=== PATIENT | female | born 1955 | race Caucasian/White ===

== ENCOUNTER 2019-02-05 06:05 | Inpatient (IN) | payer OTHER ==
[2019-02-04 14:45] LABS: BASOPHIL % 0.5 % (0-2); RED CELL DISTRIBUTION WIDTH 14.1 % (11.5-14.5)
[2019-02-04 14:46] LABS: PLATELET COUNT 410 x10^3mcL (130-400)
[2019-02-04 14:55] LABS: ALBUMIN 4.1 g/dL (3.4-5.0); ALKALINE PHOSPHATASE 137 U/L (46-116); ALT/SGPT 46 U/L (14-59); AST/SGOT 29 U/L (15-37); BILIRUBIN TOTAL 0.4 mg/dL (0.20-1.00); CALCIUM 9.6 mg/dL (8.5-10.1); CHLORIDE SERUM 105 mmol/L (98-107); CREATININE SERUM 0.8 mg/dL (0.6-1.0); GFR1 > 60 mL/min; GLUCOSE SERUM 105 mg/dL (74-106); POTASSIUM SERUM 4.8 mmol/L (3.5-5.1); SODIUM SERUM 141 mmol/L (136-145); TOTAL PROTEIN, SERUM 7.9 g/dL (6.4-8.2)
[~2019-02-05] VITALS: Ht 162.6 cm; Wt 84.8 kg
[2019-02-05 06:19] VITALS: BP 127/75
--- NOTE | 2019-02-05 12:53 | NUR ---
RECEIVED PATIENT FROM OR VIA [facility]. PATIENT IS AWAKE, ALERT AND ORIENTED. PATIENT C/O PAIN AT SURGICAL SITE, 7/10 ACHE LIKE INTERMITTENT PAIN. PATIENT MEDICATED WITH TORADOL AND DILAUDID IN PACU. ICE PACK APPLIED TO LEFT KNEE. PATIENT ABLE TO MOVE LEFT AND RIGHT EXTREMETIES. IV SITE NOTED TO LEFT HAND, FLUSHING WELL, NO S/S ERYTHEMA AT SITE. PATIENT ORIENTED TO ROOM AND INSTRUCTED TO NOTIFY IF PAIN BREAKS THROUGH. WILL CONTINUE PLAN OF CARE.
[2019-02-05 13:14] VITALS: BP 106/54
--- NOTE | 2019-02-05 13:45 | NUR ---
PT AT BEDSIDE TO AMBULATE PATIENT POST OP. PATIENT WALKED WITH FWW, TOLERATED WELL.
--- NOTE | 2019-02-05 14:34 | NUR ---
BELONGINGS DELIVERED TO , HANDED TWO BAGS TO DAUGHTER. PT AWAKE AND ALERT.
[2019-02-05 16:52] VITALS: BP 101/43
--- NOTE | 2019-02-05 18:26 | NUR ---
PATIENT AMBULATED TO RESTROOM WITH FRONT WHEEL WALKER. PATIENT TOLERTED WELL. ABLE TO VOID FREE OF DYSURIA. PATIENT STATES PAIN WORSENS UPON AMBULATION. POLAR ICE PACK APPLIED TO REAPPLIED TO LEFT KNEE. TO BE MEDICATED PRN WITH DILAUDID DISCUSSED. WILL ENDORSE PATIENT CARE TO POULTRY HATCHERY MANAGER NURSE.
--- NOTE | 2019-02-05 20:00 | NUR ---
PT IS AWAKE AND ORIENTED X4. PT DENIES [place]ON OR DIZZINESS AT THIS TIME. PT IS CALM AND COOPEARTIVE WITH NURSING CARE. PT DENIES CP OR PRESSURE. PT HAS PALPABLE PULSES BILAT ALL EXTREMITIES. SCDS IN PLACE, AND PT TO BE ON ASA PO. PT DENIES SOB. RESPIRATIONS EVEN AND UNLABORED ON ROOM AIR. PT HAS CLEAR LUNG SOUNDS. PT ABD SOFT, AND NONTENDER. PT HAS ACTIVE BOWEL SOUNDS. PT DENIES ABD PAIN AND N/V AT THIS TIME. PT VOIDS FREELY ON OWN. PT S/P L TKA. SX INCISION NOTED TO LEFT KNEE WITH DRESSING IN PLACE. SOFT CAST/SPLINT NOTED TO RUE WITH CIRCULATION WNL. PT AMBULATORY WITH USE OF FWW. IV FLUIDS LR RUNNING 80 ML/HR TO LH. IV PATENT WITH NO SIGNS OF INFILTRATION. PT REPORTS PAIN TO LLE, AND WILL RECEIVE PRN PAIN MEDICATIONS. NO SIGNS OF DISTRESS. [facility]
--- NOTE | 2019-02-05 20:13 | NUR ---
PT C/O PAIN TO LEFT KNEE. PRN DILAUDID 1MG GIVEN ORDERED. WILL CONTINUE TO MONITOR.
[2019-02-05 20:52] VITALS: BP 116/57
--- NOTE | 2019-02-05 23:22 | NUR ---
PT REMAINS IN BED AT THIS TIME RESTING WITH EYES CLOSED. NO SIGNS OF DISTRESS. WILL CONTINEU TO MONITOR.
--- NOTE | 2019-02-06 00:10 | NUR ---
PT C/O 7/10 PAIN TO LEFT KNEE. PRN DILAUDID GIVEN ORDERED. WILL CONTINUE TO MONITOR.
--- NOTE | 2019-02-06 04:27 | NUR ---
PT C/O 8/10 PAIN TO LEFT KNEE. PRN DILAUDID GIVEN ORDERED. WILL CONTINUE TO MONITOR.
[2019-02-06 05:59] VITALS: BP 113/51
--- NOTE | 2019-02-06 06:59 | NUR ---
PT IS CALM AND COOPERATIVE WITH NURSING CARE. PT C/O PAIN TO LEFT KNEE AND MANAGED PAIN WITH PRN PAIN MEDICATIONS. PT SLEPT ON AND OFF THROUGHOUT THE EVENING. PT AMBULATORY WITH FWW WITH STEADY GAIT. PT IS CONTINENT OF BLADDER. ALL PT NEEDS MET. NO SIGNS OF DISTRESS. WILL ENDORSE TO DAY NURSE.
--- NOTE | 2019-02-06 07:00 | NUR ---
RECEIVED BED SIDE REPORT AT THIS TIME. PATIENT RESTING COMFORTABLY IN BED. NO APPARENT DISTRESS OR DISCOMFORT NOTED. BREATHING EVEN AND UNLABORED. NO RESPIRATORY DISTRESS NOTED. NO INDICATION OF CHEST PAIN AT THIS TIME. IV TO LEFT HAND INFILTRATED AND REMOVED. ALL QUESTIONS AND CONCERNS ADDRESSED. ALL NEEDS ATTENDED TO. WILL CONTINUE TO MONITOR
--- NOTE | 2019-02-06 08:45 | NUR ---
IV TO LEFT HAND REMOVED. NEW IV TO RIGHT HAND PLACED. PATIENT TOLERATED WELL. ALL NEEDS ATTENDED TO
--- NOTE | 2019-02-06 09:00 | NUR ---
PATIENT C/O LEFT KNEE PAIN AT THIS TIME PATIENT MEDICATED WITH DILAUDID IV. PATIENT TOLERATED WELL. NO ADVERSE EFFECTS NOTED. WILL CONTINUE TO MONITOR
[2019-02-06 09:40] VITALS: BP 132/54
--- NOTE | 2019-02-06 09:54 | NUR ---
PATIENT C/O LEFT KNEE PAIN AT THIS TIME PATIENT MEDICATED WITH NORCO PO. PATIENT TOLERATED WELL. NO ADVERSE EFFECTS NOTED. WILL CONTINUE TO MONITOR
--- NOTE | 2019-02-06 10:00 | NUR ---
MORNING MEDICATIONS ADMINSITERED. PATIENT TOLERATED WELL. NO ADVERSE EFFECTS NOTED. ALL NEEDS ATTENDED TO
--- NOTE | 2019-02-06 13:00 | NUR ---
PATIENT C/O 06/01 LEFT KNEE PAIN. MEDICATED WITH DILAUDID IVP AT THIS TIME. PATIENT TOLERATRED WELL. NO ADVERSE EFFECTS NOTED. ALL NEEDS ATTENDED TO. WILL CONTINUE TO MONITOR
[2019-02-06] MEDS ORDERED: METFORMIN HCL500 MG PO (14:30)
[2019-02-06] MEDS ORDERED: LIPI20 PO (14:31)
[2019-02-06] MEDS ORDERED: GABAPENTIN600 M1 PO (14:32)
[2019-02-06] MEDS ORDERED: CITALOPRAM HYDR10 M1 PO (14:32)
[2019-02-06] MEDS ORDERED: ZESTRIL20 MG PO (14:33)
[2019-02-06] MEDS ORDERED: HYDROCHLOROTHIA25 MG PO (14:33)
[2019-02-06] MEDS ORDERED: ALLERGY10 M2 PO (14:34)
[2019-02-06] MEDS ORDERED: MIRAPEX0.25 MG PO (14:36)
[2019-02-06] MEDS ORDERED: ALENDRONATE SOD70 M2 PO (14:41)
[2019-02-06] MEDS ORDERED: HYDROXYZINE HYD25 MG PO (14:41)
[2019-02-06] MEDS ORDERED: BACLOFEN10 MG PO (14:57)
[2019-02-06 15:16] LABS: BASOPHIL % 0.3 % (0-2); PLATELET COUNT 381 x10^3mcL (130-400); RED CELL DISTRIBUTION WIDTH 13.9 % (11.5-14.5)
[2019-02-06 15:19] LABS: CALCIUM 9.2 mg/dL (8.5-10.1); CARBON DIOXIDE 26.4 mmol/L (21-32); CHLORIDE SERUM 100 mmol/L (98-107); CREATININE SERUM 0.8 mg/dL (0.6-1.0); GFR1 > 60 mL/min; GLUCOSE SERUM 155 mg/dL (74-106); POTASSIUM SERUM 3.7 mmol/L (3.5-5.1); SODIUM SERUM 135 mmol/L (136-145)
--- NOTE | 2019-02-06 15:23 | NUR ---
PATIENT C/O 9/10 LEFT KNEE PAIN AT THIS TIME. PATIENT MEDICATED WITH NORCO 10 AT THIS TIME. REPORTED TO DR MOORE NORCO 5 GIVEN AT 0954 ([id number]). PER MILTON OKEEFE TO GIVE FIRST NORCO 10 DOSE EARLY. PATIENT TOLERATED WELL. NO ADVERSE EFFECTS NOTED. ALL NEEDS ATTENDED TO
--- NOTE | 2019-02-06 16:50 | NUR ---
PATIENT BLOOD SUGAR 119 AT THIS TIME. NO INSULIN COVERAGE REQUIRED. ALL NEEDS ATTENDED TO. WILL CONTINUE TO MONITOR
--- NOTE | 2019-02-06 17:45 | NUR ---
PATIENT SITTING UP IN BED EATING DINNER AT THIS TIME. TOLERATING DIET FAIRLY. NO APPARENT DISTRESS OR DISCOMFORT NOTED. ICE PACK IN PLACE TO LEFT KNEE. ALL NEEDS ATTENDED TO. WILL CONTINUE TO MONITOR
[2019-02-06 17:49] VITALS: BP 134/62
--- NOTE | 2019-02-06 19:07 | NUR ---
PATIENT RESTING COMFORTABLY IN BED AT THIS TIME. NO APPARENT DISTRESS OR DISCOMFORT NOTED. FAMILY AT BEDSIDE. IV PATENT AND INTACT. ALL QUESTIONS AND CONCERNS ADDRESSED. SAFETY PRECAUTIONS MAINTAINED. ALL NEEDS ATTENDED TO. WILL ENDORSE ALL CARE TO PIT OPERATOR NURSE
--- NOTE | 2019-02-06 19:45 | NUR ---
RECIEVED PT SITTING ON SIDE OF BED WITH ICEPACK ON KNEE. NO ACUTE DISTRESS AT THIS TIME, PT A/O X 4, PERIPHERAL PULSES PALPABLE, NO EDEMA PRESENT, LUNG SOUNDS CTA, NO ACUTE REPIRATORY DISTRESS AT THIS TIME, BOWEL SOUNDS ACTIVE, ABD SOFT ROUND, S/P LEFT TOTATL KNEE REPLACEMENT, DRESSING IN PLACE CLEAN, DRY AND INTACT, PT ABLE TO AMBULATE WITH ASSISSTANCE AND A FOUR WHEEL WALKER. TWO DAUGHTERS AT BEDSIDE, BED IN THE LOWEST POSITION, CALL LIGHT IN PLACE WILL CONTINUE TO MONITOR
[2019-02-06 20:48] VITALS: BP 116/48
--- NOTE | 2019-02-06 20:57 | NUR ---
PT REPORTING THROBBING PAIN 10/10 OF THE LEFT KNEE, REQUESTING NORCO 10/325, ADMINISTERED NORCO 10/325 PER PRN ORDER, IMPLEMENTED NONPHARMACOLOGICAL MEASURES IN ADDITION TO MEDICATION, CHANGED ICE IN ICE PACK WILL CONTINUE TO MONITOR
--- NOTE | 2019-02-06 21:40 | NUR ---
PT STATES A RESPONSE TO PAIN INTERVENTIONS OF ADMINISTRATION OF NORCO AND ICEPACK. ALL NEEDS MET AT THIS TIME, WILL CONTINUE TO MONITOR
--- NOTE | 2019-02-06 21:41 | NUR ---
PT C/O INSOMNIA, UGS GIVEN.
--- NOTE | 2019-02-06 23:17 | NUR ---
PT STATING RETURN OF PAIN TO 1010 REQUESTING DILAUDID PRN. ADMINISTERED DILAUDID PRN PER ORDER, BP 143/63, HR 72, RR 16, WILL REASSESS
--- NOTE | 2019-02-06 23:50 | NUR ---
PT STATING RELIEF OF THROBBING LEFT KNEE PAIN FROM DILAUDID PRN ADMINISTRATION TO ACCEPTABLE LEVEL OF 5/10. WILL CONTINUE TO MONITOR
--- NOTE | 2019-02-07 00:10 | NUR ---
PT RESTING COMFORTABLY IN BED SLEEPING, CHANGED THE ICE IN THE ICEPACK, SAFETY PRECAUTIONS IN PLACE, ALL NEEDS MET AT THIS TIME
--- NOTE | 2019-02-07 03:27 | NUR ---
PT COMPLAINING OF 7/10 THROBBING PAIN IN THE LEFT KNEE REQUESTING NORCO 10/325 ADMINISTRATION. ADMINISTERED NORCO PRN PER ORDER, WILL REASSESS.
--- NOTE | 2019-02-07 05:14 | NUR ---
PT HAD 3 EPISODES OF THROBBING PAIN DURING THE NIGHT, I WAS ABLE TO MANAGE HER PAIN WITH PRN ORDERS INDICATED IN THE MAR, AND NON PHATMACOLOGICAL MEANS BY KEEPING HER ICE PACK FILLED WITH ICE, THERE WAS NO ACUTE RESPIRATORY DISTRESS THROUGH THE NIGHT OR EPISODES OF CEST PAIN, ALL NEEDS ATTENDED TO, ALL SAFETY PRECAUTIONS IN PLACE, WILL ENDORESE TO ONCOMING RN.
[2019-02-07 05:47] VITALS: BP 112/49
--- NOTE | 2019-02-07 07:12 | NUR ---
PHYSICAL THERAPY DAILY NOTES CO-SIGN All documentation done by the Panel Beater for 02/07/19 has been reviewed. I agree with the documentation. Reviewed/Co-Signed by: Alcira Dunne PT Documentation Done by:MOLLY SIMMONS UNDERWEAR HEMMER CO-SIGNED FOR THE DATE 02/06/19
--- NOTE | 2019-02-07 07:50 | NUR ---
RECEIVED PATIENT RESTING IN BED COMFORTABLY A/O X4, CLEAR SPEECH, NO NEURO DEFICITS NOTED, DAUGHTER AT BEDSIDE. PATIENT DENIES CHEST PAIN, BREATHING EVEN UNLABBRORED ON RA DENIES SOB, NO DISTRESS NOTED. IV TO LAC H/L INTACT AND PATENT FREE FROM REDNESS AND INFILTRATION. PATIENT IS S/P TOTAL LEFT KNEE ARTHROPLASTY ON 02/05/19 WITH DRESSING TO LEFT KNEE CDI AND ICE PACK IN PLACE TO LEFT KNEE. PATIENT C/O SHARP LEFT KNEE PAIN 07/02, MEDICATED WITH DILAUDID IVP (SEE eMAR). ALL NEEDS ATTENDED TO. INSTRUCTED PATIENT TO CALL FOR ASSISTANCE IF NEEDED, SAFETY PRECAUTIONS MAINTAINED. WILL MONITOR.
--- NOTE | 2019-02-07 08:15 | NUR ---
DR. MOORE IN TO SEE PATIENT AND SPEAK WITH FAMILY AT BEDSIDE.
[2019-02-07 09:09] VITALS: BP 125/51
--- NOTE | 2019-02-07 10:05 | NUR ---
PATIENT C/O LEFT KNEE PAIN 05/01, MEDICATED WITH NORCO PO (SEE eMAR). DAUGHTER AT BEDSIDE. PLACED NEW ICE INTO ICE MACHINE AT BEDSIDE. ALL NEEDS ATTENDED TO. SAFETY PRECAUTIONS MAINTAINED. WILL MONITOR.
[2019-02-07] MEDS ORDERED: COL100 PO (10:22)
[2019-02-07] MEDS ORDERED: AMB5 PO (10:22)
[2019-02-07] MEDS ORDERED: ECO81 PO (10:22)
[2019-02-07] MEDS ORDERED: NOR10T PO (10:23)
--- NOTE | 2019-02-07 12:05 | NUR ---
PATIENT SITTING UP IN CHAIR AT BEDSIDE C/O SHARP LEFT KNEE PAIN 10/10 S/P WORKING WITH PHYSICAL THERAPY. PATIENT MEDICATED WITH DILAUDID IVP (SEE eMAR). DAUGHTER AT BEDSIDE, ALL NEEDS ATTENDED TO. SAFETY PRECAUTIONS IN PLACE. WILL MONITOR.
--- NOTE | 2019-02-07 13:40 | NUR ---
PATIENT SITTING UP AT EDGE OF BED, NO DISTRESS NOTED, DAUGHTER AT BEDSIDE. ALL NEEDS ATTENDED TO. SAFETY PRECAUTIONS IN PLACE. WILL MONITOR.
--- NOTE | 2019-02-07 14:18 | NUR ---
PATIENT C/O SHARP LEFT KNEE PAIN 10/10, MEDICATED WITH NORCO PO (SEE eMAR). ALL NEEDS ATTENDED TO, PATIENT RESTING COMFORTABLY IN BED, ICE PACK TO LEFT KNEE IN PLACE. SAFETY PRECAUTIONS MAINTAINED. WILL MONITOR.
[2019-02-07 14:58] LABS: BASOPHIL % 0.3 % (0-2); PLATELET COUNT 318 x10^3mcL (130-400); RED CELL DISTRIBUTION WIDTH 13.8 % (11.5-14.5)
[2019-02-07 15:07] LABS: CALCIUM 8.6 mg/dL (8.5-10.1); CARBON DIOXIDE 26.6 mmol/L (21-32); CHLORIDE SERUM 100 mmol/L (98-107); CREATININE SERUM 0.8 mg/dL (0.6-1.0); GFR1 > 60 mL/min; GLUCOSE SERUM 124 mg/dL (74-106); POTASSIUM SERUM 3.9 mmol/L (3.5-5.1); SODIUM SERUM 136 mmol/L (136-145)
--- NOTE | 2019-02-07 15:20 | NUR ---
SPOKE WITH DR. MOORE AND INFORMED HIM PATIENT PATIENT C/O 10/10 LEFT KNEE PAIN. PATIENT WAS GIVEN NORCO PO AT 1418 AND DILAUDID IV AT 1205. RECEIVED T.O FROM DR. MOORE TO GIVE TORADOL 15 MG IV ONCE. WILL CARRY OUT ORDER.
--- NOTE | 2019-02-07 15:35 | NUR ---
PATIENT MEDICATED WITH TORADOL 15 MG IVP ONCE FOR SHARP LEFT KNEE PAIN 10/10 PER MD ORDERS. DAUGHTER RADHA AT BEDSIDE. ALL NEEDS ATTENDED TO. SAFETY PRECAUTIONS MAINTAINED. WILL MONITOR.
--- NOTE | 2019-02-07 17:00 | NUR ---
PATIENT C/O SHARP LEFT KNEE PAIN /, MEDICATED WITH DILAUDID IVP (SEE eMAR). PATIENT REPOSITIONED AND MADE COMFORTABLE IN BED. ICE MACHINE AT BEDSIDE FILLED WITH ICE, ICE PACK TO LEFT KNEE IN PLACE. DAUGHTER AT BEDSIDE. ALL NEEDS ATTENDED TO. SAFETY PRECAUTIONS IN PLACE. WILL MONITOR.
[2019-02-07 17:05] VITALS: BP 129/64
--- NOTE | 2019-02-07 18:10 | NUR ---
PATIENT SITTING UP AT EDGE OF BED EATING DINNER, TOLERATING WELL, NO DISTRESS NOTED. DAUGHTER AT BEDSIDE. NO ACUTE CHANGES NOTED DURING SHIFT. ALL NEEDS ATTENDED TO. IV TO LAC H/L INTACT AND PATENT FREE FROM REDNESS AND INFILTRATION. PATIENT IS CALM WITH CARE. ALL NEEDS ATTENDED TO. SAFETY PRECAUTIONS IN PLACE. WILL ENDORSE CARE TO ONCOMING NURSE.
--- NOTE | 2019-02-07 19:40 | NUR ---
RECIEVED PT RESTING COMFORTABLY IN BED WITH FOUR FAMILT MEMBERS AT BEDSIDE, PT A/OX 4 NO ACUTE DISTRESS NOTED AT THIS TIME, PERIPHERAL PULSES PALPABLE THROUGHOUT, NO EDEMA NOTED, LUNG SOUNDS CTA TROUGHOUT, NO SOB NOTED AT THIS TIME, BOWEL SOUNDS ACTIVE TIMES 4, NO POST OP BM AT THIS TIME, VOIDS FREELY WITH NO REPORTS OF BURING, ITCHING, OR PAIN, PT IS S/P LEFT TOTAL KNEE REPLACEMENT, REPORTS WEAKNESS IN LEFT KNEE BUT CAN AMBULATE WITH FWW. IV TO THE LEFT AC 22 G SALINE LOCKED PER PT REQUEST, SITE IS FREE OF REDNESS OR SIGNS OF INFILTRATION, SAFETY PRECAUTIONS IN PLACE WILL CONTINUE TO MONITOR
--- NOTE | 2019-02-07 20:26 | NUR ---
PT COMPLAINS OF 8/10 THROBBING PAIN TO THE LEFT KNEE, IS REQUESTING NORCO. ADMINISTERED NORCO 10/325 PER PRN ORDER, WILL REASSESS
--- NOTE | 2019-02-07 21:18 | NUR ---
PT REPORTS RELIEF OF PAIN TO AN ACCEPTABLE LEVEL, PY REPORTS PAIN AT A 6/10, IS SITTING UP IN BED AND LAUGHING AND CONVERSING WITH FAMILY MEMBER, ALL SAFETY PRECAUTIONS IN PLACE WILL CONTINUE TO MONITOR
[2019-02-07 21:25] VITALS: BP 112/51
--- NOTE | 2019-02-07 22:12 | NUR ---
PT REPORTS 9/10 THROBBING PAIN TO THE LEFT KNEE, REQUESTING "IV PAIN MEDS" REPOSITIONED TO POSITION OF COMFORT AND ADMINISTERED DILAUDID PRN, WILL REASSESS
--- NOTE | 2019-02-07 22:37 | NUR ---
PT REPORTS A RELIEF OF PAIN TO AN ACCEPTABLE LEVEL OF 6/10, PT LYING DOWN IN BED COMFORTABLY, RR 14, ALL SAFETY PRECAUTIONS IN PLACE WILL CONTINUE TO MONITOR
--- NOTE | 2019-02-08 01:15 | NUR ---
PT SLEEPING COMFORTABLY IN BED WITH NO ACUTE DISTRESS NOTED AT THIS TIME, FAMILY MEMBER SLEEPING IN ROOM WELL. PT RESPIRATIONS ARE EVEN AND UNLABOURED, ALL SAFETY PRECAUTIONS MAINTAINED, WILL CONTINUE TO MONITOR
--- NOTE | 2019-02-08 01:53 | NUR ---
PT REPORTS THROBBING PAIN OF THE LEFT KNEE 06/01, ADMINISTERED NORCO 10/325 PRN PER ORDER, WILL REASSESS
--- NOTE | 2019-02-08 02:40 | NUR ---
PT REPORTS RELIEF OF THROBBING LEFT KNEE PAIN TO A TOLERABLE LEVEL, /, SAFETY PRECAUTIONS IN PLACE WILL CONTINUE TO MONITOR
--- NOTE | 2019-02-08 03:26 | NUR ---
PT SLEEPING COMFORTABLY IN BED, FAMILT MEMBER SLEEPING AT BED SIDE. PT RESPIRATIONS EVEN AND UNLABORED, SAFETY PRECAUTIONS IN PLACE WILL CONTINUE TO MONITOR
[2019-02-08 04:17] VITALS: BP 121/72
--- NOTE | 2019-02-08 04:22 | NUR ---
PT CALLED REPORTING 10/10 PAIN IMPLEMENTED NO PHARMICOLOGICAL MEASURES AND REPOSITIONED PT TO POSITION OF COMFORT, ADMINISTERED DILAUDID PRN PER ORDER WILL REASSESS
--- NOTE | 2019-02-08 04:50 | NUR ---
PT REPORTS RELIEF OF PAIN TO TOLERABLE LEVEL.
--- NOTE | 2019-02-08 05:42 | NUR ---
PT HAD EPISODES OF PAIN THROUGH THE NIGHT WICH RESOLVED TO TOLERABLE LEVELS WITH PRN ANALGESIC ADMINISTRATION (SEE PT NOTES), PT HAD NO ACUTE RESPIRATORY DISTRESS THROUGH THE MIGHT, ALL NEEDS MET THROUGH THE NIGHT, WILL ENDRSE CARE TO THE ONCOMING RN
[2019-02-08 06:51] LABS: CALCIUM 8.6 mg/dL (8.5-10.1); CARBON DIOXIDE 28.5 mmol/L (21-32); CHLORIDE SERUM 102 mmol/L (98-107); CREATININE SERUM 0.7 mg/dL (0.6-1.0); GFR1 > 60 mL/min; GLUCOSE SERUM 133 mg/dL (74-106); POTASSIUM SERUM 3.8 mmol/L (3.5-5.1); SODIUM SERUM 136 mmol/L (136-145)
[2019-02-08 07:02] LABS: BASOPHIL % 0.4 % (0-2); PLATELET COUNT 307 x10^3mcL (130-400); RED CELL DISTRIBUTION WIDTH 13.9 % (11.5-14.5)
--- NOTE | 2019-02-08 07:49 | NUR ---
PHYSICAL THERAPY DAILY NOTES CO-SIGN All documentation done by the Associate Director Of Biostatistics for 02/08/19 has been reviewed. I agree with the documentation. Reviewed/Co-Signed by: Alcira Dunne PT Documentation Done by:MOLLY SIMMONS MANAGER OF INTERNATIONAL CO-SIGNED FOR 02/07/19
[2019-02-08 07:50] VITALS: BP 125/58
--- NOTE | 2019-02-08 07:50 | NUR ---
PT REFUSED P/T TRAINING. THERAPIST WAS ABLE TO REVIEW TRANSFER TECHNIQUES AND ROM EXERCISES. PT VERBALIZED UNDERSTANDING.
--- NOTE | 2019-02-08 07:52 | NUR ---
PHYSICAL THERAPY DAILY NOTES CO-SIGN All documentation done by the Paper Wood Cutter for 02/08/19 has been reviewed. I agree with the documentation. Reviewed/Co-Signed by: Alcira Dunne PT Documentation Done by:MOLLY SIMMONS SHIRT MARKER CO-SIGNED FOR 02/07/19
--- NOTE | 2019-02-08 07:53 | NUR ---
DR. MOORE MET WITH PT AND DISCUSSED POC. PT WILL D/C TO HOME TODAY. PT AGREED WITH POC. RECEIVED ORDER TO D/C IVF. ORDER NOTED AND CARRIED OUT.
--- NOTE | 2019-02-08 08:57 | NUR ---
NORCO 10/325MG PO GIVEN FOR THROBBING L KNEE PAIN 05/01. FLUIDS ENCOURAGED. PT ASSIST WITH CONTINUOUS ICE PACK. DENIES NUMBNESS. DUE MEDS GIVEN. B/P 125/58. ALL QUESTIONS ANSWERED. CALL LIGHT WITHIN REACH DAUGHTER AT BEDSIDE.
[2019-02-08 10:45] VITALS: BP 125/58
--- NOTE | 2019-02-08 11:45 | NUR ---
RECEIVED ORDER FROM DR. MOORE. PT MAY DISCHARGED TO HOME TODAY. ORDER NOTED AND CARRIED OUT. PT MADE AWARE.
--- NOTE | 2019-02-08 12:48 | NUR ---
NORCO 10/325MG PO FOR THROBBING HOT PAIN 10/10. RESP EVEN AND UNLABORED. FLUIDS ENCOURAGED. DAUGHTER AT BEDSIDE. CALL LIGHT WITHIN REACH.
--- NOTE | 2019-02-08 13:20 | NUR ---
PT DISCHARGED TO HOME IN NO DISTRESS. DISCHARGE INSTRUCTIONS REVIEWED. ALL FORMS SIGNED. ALL QUESTIONS ANSWERED. IV CATH TO LAC REMOVED INTACT, SITE WNL, COVERED WITH GAUZE AND BANDAID. VS: 97.4F, 105, 18, 125/58, 93/5 ON R/A. PT MEDICATED FOR PAIN PRIOR TO D/C, STATES PAIN LEVEL AT THIS TIME 4/10. ALL PERSONAL BELONGINGS TAKEN HOME WITH PT.
--- NOTE | 2019-02-08 14:00 | NUR ---
PT IS AAOX4. NORMAL S1S2. RESP EVEN, SHALLOW AND UNLABORED. LUNG SOUNDS CTA. ON R/A. ABDOMEN SOFT, NONTENDER, NONDISTENDED. BOWEL SOUNDS ACTIVE. PT HAS L KNEE INCISION COVERED WITH CDI OCCLUSIVE DRESSING. SITE NO SHOWS NO S/S OF INFECTION. IVF RUNNING TO LAC, PATENT. SITE WNL WITH NO S/S OF INFECTION OR INFILTRATION. PT DENIES PAIN AT THIS TIME. CALL LIGHT WITHIN REACH. BED IN LOW POSITION.
--- NOTE | 2019-02-11 08:00 | NUR ---
PHYSICAL THERAPY DAILY NOTES CO-SIGN All documentation done by the Low Vision Therapist for 02/11/19 has been reviewed. I agree with the documentation. Reviewed/Co-Signed by: Alcira Dunne PT Documentation Done by:MOLLY SIMMONS NEW GRAD RN CO-SIGNED FOR 02/08/19
== END 2019-02-08 13:12 | disposition home or self-care (01) | DRG 302 ==
LOC: MU 06:05
PROVIDERS: ADMIT Orthopaedic Surgery
PROC: 0SRD0J9 Replacement of Left Knee Joint with Synthetic Substitute, Cemented, Open Approach (ICD-10-PCS; principal; 2019-02-05 07:30)
DX: M17.12 Unilateral primary osteoarthritis, left knee (principal); E11.9 Type 2 diabetes mellitus without complications; I10 Essential (primary) hypertension
CPT/HCPCS: 82962; 97110-GP; 97116-GP; 97530-GP; C1713; C1776; J0690; J1170; J1885; J2250; J2270; J2405; J2704; J3010; J3490; J7030; J7120; Q0092